=== PATIENT | male | born 1970 | race African-American/Black ===

== ENCOUNTER 2016-10-03 05:40 | Emergency (ER) | payer SELFPAY ==
[2016-10-03] MEDS ORDERED: Ketorolac INJ* 60 MG/2 ML VIAL IM ONE (06:30)
--- NOTE | 2016-10-03 06:43 | ED ---
Carlitos Vidal SooYoung, scribed for Oz Quigley MD on 10/03/16 at 0633 . Back Pain - HPI Summary HPI Summary: A 46 y/o M presents to ED with lower back pain onset yesterday AM. Pt is unsure what caused the pain. Alleviating factors: Alleve, afterwards he was able to go about ADL yesterday. When he woke up this AM, the back pain had returned. Pert PMHx: back pain several years ago, hasn't bothered him since. Pt used to work construction. Pt takes HTN meds. PCP is Dr. Rizzo. - History of Current Complaint Chief Complaint: EDBackInjuryPain Stated Complaint: BACK PAIN Time Seen by Provider: 10/03/16 06:28 Hx Obtained From: Patient Onset/Duration: Still Present Timing: Constant Back Pain Location: Is Discrete @ - lower back Severity Initially: Moderate Severity Currently: Moderate Pain Intensity: 6 Pain Scale Used: 0-10 Numeric Alleviating Symptom(s): OTC Meds Related History: Previous Back Injury - Allergies/Home Medications Allergies/Adverse Reactions: Allergies Allergy/AdvReac Type Severity Reaction Status Date / Time No Known Allergies Allergy Verified 05/29/15 11:54 PMH/Surg Hx/FS Hx/Imm Hx Previously Healthy: No Endocrine/Hematology History: Denies: Hx Diabetes, Hx Thyroid Disease Cardiovascular History: Reports: Hx Hypertension Respiratory History: Reports: Hx Asthma Denies: Hx Chronic Obstructive Pulmonary Disease (COPD) GI History: Denies: Hx Ulcer Infectious Disease History: No Infectious Disease History: Denies: Hx Hepatitis, Hx Human Immunodeficiency Virus (HIV), Traveled Outside the [place] in Last 30 Days - Social History Occupation: Employed Full-time Lives: With Family Alcohol Use: Occasionally Hx Substance Use: No Substance Use Type: Reports: None Hx Tobacco Use: No Smoking Status (MU): Never Smoked Tobacco Type: Cigarettes Review of Systems Negative: Fever Positive: Other - pos: low back pain All Other Systems Reviewed And Are Negative: Yes Physical Exam Triage Information Reviewed: Yes Vital Signs On Initial Exam: Initial Vitals Temp Pulse Resp BP Pulse Ox 97.6 F 93 18 121/80 97 10/03/16 05:44 10/03/16 05:44 10/03/16 05:44 10/03/16 05:44 10/03/16 05:44 Vital Signs Reviewed: Yes Appearance: Positive: Well-Appearing, Pain Distress - mild discomfort Skin: Positive: Warm Head/Face: Positive: Normal Head/Face Inspection Eyes: Positive: TEN ENT: Positive: Hearing grossly normal Neck: Positive: Supple Respiratory/Lung Sounds: Positive: Clear to Auscultation, Breath Sounds Present Cardiovascular: Positive: RRR Abdomen Description: Positive: Nontender, Soft Bowel Sounds: Positive: Present Musculoskeletal: Positive: Strength/ROM Intact, Other - mild lower para lumbar spinal spasm Neurological: Positive: Sensory/Motor Intact, Alert, Oriented to Person Place, Time, Normal Gait Diagnostics - Vital Signs Vital Signs Temp Pulse Resp BP Pulse Ox 10/03/16 05:44 97.6 F 93 18 121/80 97 - Laboratory Lab Statement: Any lab studies that have been ordered have been reviewed, and results considered in the medical decision making process. Re-Evaluation - Re-Evaluation First Eval Change: Improved Back Pain Course/Dx - Course Course Of Treatment: A 46 y/o M presents with lower back pain onset yesterday AM. Pt is unsure what caused the pain. Alleviating factors: Alleve, afterwards he was able to go about ADL yesterday. When he woke up this AM, the back pain had returned. Pert PMHx: back pain several years ago, hasn't bothered him since. Pt used to work construction. Pt takes HTN meds. PCP is Dr. Rizzo. Pt given Toradol in ED. - Diagnoses Provider Diagnoses: Spasm of lumbar paraspinous muscle Discharge - Discharge Plan Condition: Improved Disposition: HOME Prescriptions: Cyclobenzaprine TAB* [Flexeril 10 MG TAB*] 10 mg PO TID #30 tab Ibuprofen TAB* [Motrin TAB* 800 MG] 800 mg PO TID #30 tab Patient Education Materials: Ibuprofen (By mouth), Cyclobenzaprine (By mouth), Acute Low Back Pain (ED) Referrals: Fran Banks MD [Primary Care Provider] - Additional Instructions: Follow up with your primary care provider in the next 2-3 days. Please return to the ED if you experience new or worsening symptoms. The documentation as recorded by the Carlitos calvert SooYoung accurately reflects the service I personally performed and the decisions made by me, Oz Quigley MD.
[2016-10-03 07:08] VITALS: BP 115/72
== END 2016-10-03 07:08 | disposition home or self-care (01) ==
LOC: ED 05:40
DX: M62.830 Muscle spasm of back (principal); M54.5 Low back pain
CPT/HCPCS: 96372; 99282; J1885